=== PATIENT | male | born 1970 | race Caucasian/White ===

== ENCOUNTER → 2017-01-16 | Outpatient (CLI) | payer BC | LOC: FIMAGING 11:00 | PROVIDERS: ATTEND Family Medicine | DX: N45.1 Epididymitis (principal) ==

== ENCOUNTER → 2019-01-03 | Outpatient (CLI) | payer BC, OTHER | LOC: CIMAGING 08:29 | PROVIDERS: ATTEND Family Medicine | DX: R06.02 Shortness of breath (principal) | CPT/HCPCS: 71046-PO ==